=== PATIENT | male | born 1955 | race Hispanic/Latino ===

== ENCOUNTER 2018-12-12 14:33 | Inpatient (IN) | payer MEDICARE, OTHER ==
[~2018-12-12] VITALS: Ht 167.6 cm; Wt 71.9 kg
[2018-12-12] MEDS ORDERED: SODIUM CHLORIDE 0.9% 1000ML 1,000 ML IV ONE (15:08)
[2018-12-12 15:15] LABS: EOSINOPHILS % (AUTO) 2.2 % (0.0-8.0); HEMATOCRIT 40.1 % (42-54); LYMPHOCYTES % (AUTO) 21.7 % (21.0-51.0); MEAN CORPUSCULAR HEMOGLOBIN 27.4 pg (27.0-33.0); MEAN CORPUSCULAR HGB CONC 33.1 g/dL (32.0-36.0); MEAN CORPUSCULAR VOLUME 82.7 fL (79-99); MONOCYTES % (AUTO) 10.5 % (3.0-13.0); NEUTROPHILS % (AUTO) 64.6 % (40.0-77.0); PLATELET COUNT (AUTO) 537 K/uL (130-400); RED BLOOD CELL COUNT(AUTO) 4.84 MIL/uL (4.50-6.20); RED CELL DISTRIBUTION WIDTH 13.6 % (11.0-15.5); WHITE BLOOD COUNT (AUTO) 13.1 K/uL (4.8-10.8)
[2018-12-12 15:42] LABS: CREATININE 0.9 mg/dL (0.5-1.5); POTASSIUM 4.5 mmol/L (3.5-5.1)
[2018-12-12 15:50] LABS: ALBUMIN 3.3 g/dL (3.5-5.0); BILIRUBIN,TOTAL 0.4 mg/dL (0.2-1.0); TOTAL PROTEIN, SERUM 7.8 g/dL (6.0-8.3)
[2018-12-12] MEDS ORDERED: AZITHROMYCIN 500MG+NS 250ML 250 ML IV ONE (15:56)
[2018-12-12] MEDS ORDERED: CEFTRIAXONE SODIUM 1 GM ONE (15:56)
[2018-12-12] MEDS ORDERED: SODIUM CHLORIDE 0.9% 50 ML IV ONE (15:56)
[2018-12-12] MEDS ORDERED: GUAIFENESIN-DM 200/20 MG 10 ML PO PRN (22:30)
[2018-12-12] MEDS ORDERED: MORPHINE SULFATE 2 MG/ML 1ML SYG IV PRN (22:30)
[2018-12-12] MEDS ORDERED: HYDRALAZINE HCL 20 MG/ML VIAL IV PRN (22:30)
[2018-12-12] MEDS ORDERED: ACETAMINOPHEN 325 MG TAB PO PRN ×2 (22:30)
[2018-12-12] MEDS ORDERED: ONDANSETRON HCL 4 MG/2 ML VIAL IV PRN (22:30)
[2018-12-12 23:27] LABS: PHOSPHORUS 3.4 mg/dL (2.5-4.9)
[2018-12-12] MEDS ORDERED: SODIUM CHLORIDE 3% FOR INHALATION 4 ML/AMP VIAL.NEB IH ONE (23:53)
[2018-12-13] MEDS ORDERED: IPRATROPIUM/ALBUTEROL SULFATE 3 ML SOLUTION IH ONE ×3 (00:08→10:51)
[2018-12-13] MEDS: IPRATROPIUM/ALBUTEROL SULFATE 3 ML SOLUTION IH SCH ×5 (00:09→23:17)
[2018-12-13] MEDS ORDERED: SODIUM CHLORIDE 3% FOR INHALATION 4 ML/AMP VIAL.NEB IH ONE (05:19)
[2018-12-13 06:14] LABS: BASOPHILS % (AUTO) 0.9 % (0.0-5.0); EOSINOPHILS % (AUTO) 2.3 % (0.0-8.0); HEMATOCRIT 37.9 % (42-54); LYMPHOCYTES % (AUTO) 19.5 % (21.0-51.0); MEAN CORPUSCULAR HEMOGLOBIN 27.3 pg (27.0-33.0); MEAN CORPUSCULAR HGB CONC 33.1 g/dL (32.0-36.0); MEAN CORPUSCULAR VOLUME 82.4 fL (79-99); MONOCYTES % (AUTO) 10.9 % (3.0-13.0); NEUTROPHILS % (AUTO) 66.4 % (40.0-77.0); PLATELET COUNT (AUTO) 491 K/uL (130-400); RED BLOOD CELL COUNT(AUTO) 4.59 MIL/uL (4.50-6.20); RED CELL DISTRIBUTION WIDTH 13.4 % (11.0-15.5); WHITE BLOOD COUNT (AUTO) 10.7 K/uL (4.8-10.8)
[2018-12-13 06:24] LABS: CREATININE 0.8 mg/dL (0.5-1.5); POTASSIUM 4.2 mmol/L (3.5-5.1)
[2018-12-13 06:28] LABS: ALBUMIN 2.7 g/dL (3.5-5.0); BILIRUBIN,TOTAL 0.4 mg/dL (0.2-1.0); TOTAL PROTEIN, SERUM 7.5 g/dL (6.0-8.3)
[2018-12-13] MEDS: OSELTAMIVIR PHOSPHATE 75 MG CAP PO SCH ×2 (09:00→21:37)
[2018-12-13] MEDS: FUROSEMIDE 10 MG/ML 4ML VIAL IVP SCH ×2 (09:00→21:36)
[2018-12-13] MEDS: CEFTRIAXONE SODIUM 1 GM IV SCH ×2 (09:00→21:36)
[2018-12-13] MEDS: FAMOTIDINE/PF 20 MG/2 ML VIAL IV SCH ×2 (09:00→21:36)
[2018-12-13] MEDS ORDERED: IOHEXOL-350 50ML VIAL IV ONE (09:55)
--- NOTE | 2018-12-13 10:30 | NUR ---
U/S GD RT THORACENTESIS PROCEDURE PERFORMED BY DR Yo COTTRELL. PUNCTURE SITE RT POSTERIOR BACK AND PATIENT TOLERATED PROCEDURE WELL. TOTAL REMOVED 1.7 LITERS OF BLOOD TINGED FLUID. END OF PROCEDURE AT 1010. CATHETER REMOVED AND DRESSING APPLIED. NO BLEEDING NOTED. POST CHEST X-RAY TAKEN AND READ BY DR Yo COTTRELL. PENDING RESULTS OF CHEST X-RAY. REPORT GIVEN TO Vani MCKNIGHT RN AND PATIENT TRANSPORTED TO ED 9 VIA BED AT 1030. AAO X3 WITH NO C/O PAIN. SPECIMEN SENT TO LAB.
[2018-12-13] MEDS ORDERED: FAMOTIDINE/PF 20 MG/2 ML VIAL IV ONE (10:42)
[2018-12-13] MEDS ORDERED: OSELTAMIVIR PHOSPHATE 75 MG CAP ONE (10:42)
[2018-12-13 15:15] VITALS: BP 133/78
[2018-12-13] MEDS: AZITHROMYCIN 500MG+NS 250ML 250 ML IV SCH (16:54)
[2018-12-13 17:28] LABS: APPEARANCE BODY FLUID TURBID (CLEAR); SPECIMENTYPE,BODY FLUID PLEURAL
[2018-12-13 17:29] LABS: BODY FLUID WBC 2245 /cu. mm.; COLOR,BODY FLUID RED (LT YELLOW); TOTAL VOLUME,BODY FLUID 1700 mL
[2018-12-13 17:30] LABS: BODY FLUID RBC 6578 /cu. mm.
[2018-12-13 17:49] LABS: BF LYMPHOCYTE 92 %; BF MONOCYTE 5 %
[2018-12-13 19:05] VITALS: BP 147/83
[2018-12-13 23:05] VITALS: BP 118/75
[2018-12-14 03:05] VITALS: BP 117/78
[2018-12-14 04:59] LABS: HEMATOCRIT 37.6 % (42-54); MEAN CORPUSCULAR HEMOGLOBIN 27.3 pg (27.0-33.0); MEAN CORPUSCULAR HGB CONC 33.2 g/dL (32.0-36.0); MEAN CORPUSCULAR VOLUME 82.3 fL (79-99); PLATELET COUNT (AUTO) 480 K/uL (130-400); RED BLOOD CELL COUNT(AUTO) 4.57 MIL/uL (4.50-6.20); RED CELL DISTRIBUTION WIDTH 13.2 % (11.0-15.5); WHITE BLOOD COUNT (AUTO) 11.5 K/uL (4.8-10.8)
[2018-12-14 05:08] LABS: CARBON DIOXIDE 26 mmol/L (21-32); CHLORIDE 101 mmol/L (101-111); CREATININE 0.9 mg/dL (0.5-1.5); GLOMERULAR FILTR. RATE CALC 90 mL/min (>60); GLUCOSE,RANDOM 108 mg/dL (70-105); POTASSIUM 3.8 mmol/L (3.5-5.1); SODIUM SERUM 139 mmol/L (136-145); UREA NITROGEN, BLOOD 11 mg/dL (7-18)
[2018-12-14] MEDS: IPRATROPIUM/ALBUTEROL SULFATE 3 ML SOLUTION IH SCH ×4 (06:55→23:11)
[2018-12-14 07:45] VITALS: BP 120/81
[2018-12-14] MEDS: OSELTAMIVIR PHOSPHATE 75 MG CAP PO SCH ×2 (10:06→20:40)
[2018-12-14] MEDS: CEFTRIAXONE SODIUM 1 GM IV SCH ×2 (10:06→20:40)
[2018-12-14] MEDS: FAMOTIDINE/PF 20 MG/2 ML VIAL IV SCH ×2 (10:07→20:40)
[2018-12-14] MEDS: FUROSEMIDE 10 MG/ML 4ML VIAL IVP SCH ×2 (10:07→20:40)
[2018-12-14 12:00] VITALS: BP 123/79
--- NOTE | 2018-12-14 13:50 | NUR ---
DCP: CM met with pt discussed dc plans. Pt is independent prior to admission, lives at home alone, son lives close by. Pt has a cane, shower chair. Denies any other equipments/services. Feels safe to go back home, still drives, son able to assist with transportation and needs as necessary. DC plan to home once stable. CM to cont to follow up. Addendum: 12/14/18 at 1352 by HIPOLITO MCCAIN LVN CM Amended: Links added.
[2018-12-14] MEDS: AZITHROMYCIN 500MG+NS 250ML 250 ML IV SCH (15:41)
[2018-12-14 16:00] VITALS: BP 119/86
[2018-12-14 19:00] VITALS: BP 124/71
--- NOTE | 2018-12-14 20:40 | NUR ---
MEDS SHIFT ASSESSMENT DONE, PLEASE REFER TO CHART. DUE MEDS ADMINISTERED, TOLERATED WELL. KEPT RESTED AND COMFORTABLE. CALL LIGHT WITHIN REACH. WILL MONITOR PT. Addendum: 12/14/18 at 2249 by LEONEL NYE RN RN Amended: Links added.
[2018-12-15] VITALS: BP 100/52
--- NOTE | 2018-12-15 01:32 | NUR ---
ROUNDS PT RESTING WELL, FAIRLY ASLEEP WITH RESPIRATIONS EVEN AND UNLABORED. NO NOTED DISTRESS. KEPT UNDISTURBED FOR NOW WILL MONITOR PT. CALL LIGHT WITHIN REACH.
[2018-12-15 04:00] VITALS: BP 115/74
[2018-12-15 04:50] LABS: BASOPHILS % (AUTO) 1.1 % (0.0-5.0); EOSINOPHILS % (AUTO) 2.3 % (0.0-8.0); HEMATOCRIT 40.2 % (42-54); LYMPHOCYTES % (AUTO) 18.3 % (21.0-51.0); MEAN CORPUSCULAR HEMOGLOBIN 26.6 pg (27.0-33.0); MEAN CORPUSCULAR HGB CONC 32.1 g/dL (32.0-36.0); MEAN CORPUSCULAR VOLUME 82.8 fL (79-99); MONOCYTES % (AUTO) 11.6 % (3.0-13.0); NEUTROPHILS % (AUTO) 66.7 % (40.0-77.0); NUCLEATED RED BLOOD CELLS 0.1 % (0.0-0.19); PLATELET COUNT (AUTO) 522 K/uL (130-400); RED BLOOD CELL COUNT(AUTO) 4.85 MIL/uL (4.50-6.20); RED CELL DISTRIBUTION WIDTH 13.4 % (11.0-15.5); WHITE BLOOD COUNT (AUTO) 11.9 K/uL (4.8-10.8)
[2018-12-15 05:18] LABS: ALBUMIN 2.6 g/dL (3.5-5.0); BILIRUBIN,TOTAL 0.3 mg/dL (0.2-1.0); POTASSIUM 3.7 mmol/L (3.5-5.1); TOTAL PROTEIN, SERUM 7.8 g/dL (6.0-8.3)
--- NOTE | 2018-12-15 05:34 | NUR ---
ROUNDS PT RESTING WELL, STILL ASLEEP. KEPT COMFORTABLE. FOR MORE CARE.
[2018-12-15] MEDS: IPRATROPIUM/ALBUTEROL SULFATE 3 ML SOLUTION IH SCH ×4 (06:51→23:10)
[2018-12-15 08:00] VITALS: BP 109/89
[2018-12-15] MEDS: FUROSEMIDE 10 MG/ML 4ML VIAL IVP SCH ×2 (09:00→19:54)
[2018-12-15] MEDS: FAMOTIDINE/PF 20 MG/2 ML VIAL IV SCH ×2 (10:13→19:54)
[2018-12-15] MEDS: CEFTRIAXONE SODIUM 1 GM IV SCH ×2 (10:13→19:54)
[2018-12-15] MEDS: OSELTAMIVIR PHOSPHATE 75 MG CAP PO SCH ×2 (10:13→19:54)
[2018-12-15 11:50] VITALS: BP 140/95
--- NOTE | 2018-12-15 14:09 | NUR ---
THORACIC SURGERY CONSULT ATTEMPTED TO PAGE DR FRAIRE/AMBAR REGARDING CONSULT- NO ANSWER AND UNABLE TO LEAVE MESSAGE
--- NOTE | 2018-12-15 14:56 | NUR ---
DR BARON NURSE PAGED PAGED REGARDING CONSULT
--- NOTE | 2018-12-15 15:06 | NUR ---
Notified [facility], via telephone of consult with pt.
[2018-12-15] MEDS: AZITHROMYCIN 500MG+NS 250ML 250 ML IV SCH (15:21)
[2018-12-15 16:00] VITALS: BP 133/82
[2018-12-15 19:00] VITALS: BP 124/74
[2018-12-16] VITALS (7 sets, daily range): BP systolic 110–131; BP diastolic 71–89
[2018-12-16 05:12] LABS: BASOPHILS % (AUTO) 0.9 % (0.0-5.0); EOSINOPHILS % (AUTO) 2.8 % (0.0-8.0); HEMATOCRIT 37.2 % (42-54); LYMPHOCYTES % (AUTO) 15.1 % (21.0-51.0); MEAN CORPUSCULAR HGB CONC 33.2 g/dL (32.0-36.0); MEAN CORPUSCULAR VOLUME 81.3 fL (79-99); MONOCYTES % (AUTO) 13.1 % (3.0-13.0); NEUTROPHILS % (AUTO) 68.1 % (40.0-77.0); PLATELET COUNT (AUTO) 525 K/uL (130-400); RED BLOOD CELL COUNT(AUTO) 4.57 MIL/uL (4.50-6.20); RED CELL DISTRIBUTION WIDTH 13.2 % (11.0-15.5)
[2018-12-16 05:24] LABS: CREATININE 0.9 mg/dL (0.5-1.5); POTASSIUM 3.9 mmol/L (3.5-5.1)
[2018-12-16] MEDS: IPRATROPIUM/ALBUTEROL SULFATE 3 ML SOLUTION IH SCH ×4 (06:56→23:34)
--- NOTE | 2018-12-16 08:00 | NUR ---
NOTE AAOX3. DENIES PAIN OR DISCOMFORT. NO DISTRESS NOTED. DRY COUGH. STATES EVERY NOW AND THEN HE DOES BRING UP SOME PHLEGM. HE IS ANXIOUS AND SOMEWHAT NERVOUS ABOUT CONSULT WITH DR MORRELL. I WILL CALL HIS NURSE AND FIND OUT WHEN HE WILL BE ROUNDING AND INFORM PATIENT ABOUT IT. BBS DIMINISHED TO RIGHT LOWER AND UPPER WELL. HE HAD RIGHT THORACENTESIS 2 DAYS AGO. HE IS ON DROPLET PRECAUTIONS. HE REPORTS HAVING LOST 20 POUNDS OVER LAST MONTH AND NIGHT SWEATS. DENIES CHILLS OR FEVER AT HOME OR BLOODY SPUTUM.
--- NOTE | 2018-12-16 10:00 | NUR ---
NOTE INFORMED HIM ABOUT DR MORRELL COMING IN BETWEEN SURGERIES TODAY. HIS SON IS AWARE WELL.
[2018-12-16] MEDS: FAMOTIDINE/PF 20 MG/2 ML VIAL IV SCH (10:31)
[2018-12-16] MEDS: CEFTRIAXONE SODIUM 1 GM IV SCH ×2 (10:31→20:25)
[2018-12-16] MEDS: FUROSEMIDE 10 MG/ML 4ML VIAL IVP SCH ×2 (10:31→20:25)
[2018-12-16] MEDS: OSELTAMIVIR PHOSPHATE 75 MG CAP PO SCH ×2 (10:32→20:25)
[2018-12-16] MEDS ORDERED: ENOXAPARIN SODIUM 30 MG/0.3 ML SQ SCH (13:30)
[2018-12-16] MEDS: AZITHROMYCIN 500MG+NS 250ML 250 ML IV SCH (16:19)
[2018-12-16] MEDS ORDERED: AMOX-429 PO (16:56)
[2018-12-16] MEDS ORDERED: GUAI5SYR PO (16:56)
[2018-12-16] MEDS ORDERED: OSEL75 PO (16:56)
[2018-12-16] MEDS ORDERED: CEFAZOLIN SODIUM 1 GM VIAL IVP PRN (17:45)
[2018-12-16] MEDS: FAMOTIDINE 20MG TAB 20 MG TAB PO SCH (20:25)
[2018-12-17 03:30] VITALS: BP 119/77
[2018-12-17] MEDS: IPRATROPIUM/ALBUTEROL SULFATE 3 ML SOLUTION IH SCH ×2 (06:48→11:26)
[2018-12-17 08:03] VITALS: BP 114/78
[2018-12-17] MEDS ORDERED: ENOXAPARIN SODIUM 30 MG/0.3 ML SQ SCH (09:00)
[2018-12-17] MEDS: OSELTAMIVIR PHOSPHATE 75 MG CAP PO SCH (10:31)
[2018-12-17] MEDS: FAMOTIDINE 20MG TAB 20 MG TAB PO SCH (10:32)
[2018-12-17] MEDS: FUROSEMIDE 10 MG/ML 4ML VIAL IVP SCH (10:33)
[2018-12-17] MEDS: CEFTRIAXONE SODIUM 1 GM IV SCH (10:33)
--- NOTE | 2018-12-17 10:50 | NUR ---
Patient refused Lovenox.
[2018-12-17 11:07] VITALS: BP 133/90
--- NOTE | 2018-12-17 13:16 | NUR ---
Reviewed discharge information regarding pleural effusion, pneumonia and thoracentesis. Medications reviewed and prescription given. As per discharge instructions, patient is to call pulmonologists office and set up follow up appointment within 1-2 weeks and schedule appointment with primary care physician within 3-5 days. Patient declined wheelchair or contacting family to notify of discharge, stating he drove himself to the hospital when he came in and he'd like to surprise his family when he arrives home. Escorted patient and assisted by carrying bags to vehicle. Patient denied shortness of breath, dizziness or chest pain.
--- NOTE | 2018-12-17 13:30 | NUR ---
Patient's son called regarding discharge. 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 Son verbalized understanding and stated he would review discharge information to ensure follow ups were performed.
== END 2018-12-17 13:28 | disposition home or self-care (01) | DRG 194 ==
LOC: EDH 14:33 → EDHIP 22:22 → 4BH 12-13 14:37
PROVIDERS: ADMIT Internal Medicine; ATTEND Internal Medicine
PROC: 0W993ZZ Drainage of Right Pleural Cavity, Percutaneous Approach (ICD-10-PCS; principal; 2018-12-13)
DX: J18.9 Pneumonia, unspecified organism (principal); J90 Pleural effusion, not elsewhere classified; E87.1 Hypo-osmolality and hyponatremia; E87.2 Acidosis; J98.11 Atelectasis
CPT/HCPCS: 32555; 36415; 71045; 71046; 71270; 80048; 80053; 82945; 83605; 83615; 83735; 83986; 84100; 84145; 84157; 84484; 85025; 85027; 86140; 87040; 87071; 87116; 87205; 87206; 88108; 88305; 89051; 93005; 94640; 94664; G0378; J0456; J0696; J1650; J1940; J3490; J7030; Q9967

== ENCOUNTER 2020-03-26 09:00 | Observation (INO) | payer MEDICARE ==
[~2020-03-26] VITALS: Ht 177.8 cm; Wt 77.0 kg
[~2020-03-26 09:00] MED LIST: ASPI-556 PO; LEVO500T2 PO; OSEL75 PO
[2020-03-26 09:55] LABS: BASOPHILS % (AUTO) 0.5 % (0.0-5.0); EOSINOPHILS % (AUTO) 0.4 % (0.0-8.0); HEMATOCRIT 35.9 % (42-54); LYMPHOCYTES % (AUTO) 11.7 % (21.0-51.0); MEAN CORPUSCULAR HEMOGLOBIN 25.3 pg (27.0-33.0); MEAN CORPUSCULAR HGB CONC 32.6 g/dL (32.0-36.0); MEAN CORPUSCULAR VOLUME 77.5 fL (79-99); MONOCYTES % (AUTO) 5.9 % (3.0-13.0); NEUTROPHILS % (AUTO) 80.3 % (40.0-77.0); PLATELET COUNT (AUTO) 253 K/uL (130-400); RED BLOOD CELL COUNT(AUTO) 4.63 MIL/uL (4.50-6.20); RED CELL DISTRIBUTION WIDTH 17.2 % (11.0-15.5); WHITE BLOOD COUNT (AUTO) 8.2 K/uL (4.8-10.8)
[2020-03-26 10:12] LABS: CARBON DIOXIDE 27 mmol/L (21-32); CREATININE 0.8 mg/dL (0.5-1.5); GLOMERULAR FILTR. RATE CALC 103 mL/min (>60); GLUCOSE,RANDOM 89 mg/dL (70-105); INR 1.09 (0.85-1.15); POTASSIUM 3.7 mmol/L (3.5-5.1); PROTHROMBIN TIME 11.8 SEC (9.6-11.6); SODIUM SERUM 124 mmol/L (136-145); UREA NITROGEN, BLOOD 12 mg/dL (7-18)
[2020-03-26 10:22] LABS: ALANINE AMINOTRANSFERASE 21 U/L (12-78); ALBUMIN 2.5 g/dL (3.5-5.0); ASPARTATE AMINOTRANSFERASE 20 U/L (10-37); BILIRUBIN,TOTAL 0.5 mg/dL (0.2-1.0); CHLORIDE 90 mmol/L (101-111); CREATINE KINASE, TOTAL 34 U/L (21-232); MYOGLOBIN 27 ng/mL (10-92); TOTAL PROTEIN, SERUM 6.5 g/dL (6.0-8.3); TROPONIN I < 0.04 ng/mL (0.00-0.06)
[2020-03-26] MEDS ORDERED: MORPHINE 4 MG SYG ONE (11:25)
[2020-03-26] MEDS ORDERED: ONDANSETRON 4MG INJ ONE (11:25)
[2020-03-26] MEDS ORDERED: ACETAMINOPHEN 325 MG TAB PO PRN (12:00)
[2020-03-26] MEDS ORDERED: TRAMADOL HCL 50 MG TABLET PO PRN (12:00)
[2020-03-26] MEDS ORDERED: ONDANSETRON 4MG INJ IV PRN (12:00)
[2020-03-26] MEDS ORDERED: FAMOTIDINE 20MG TAB ONE ×2 (12:22→21:01)
[2020-03-26] MEDS ORDERED: ENOXAPARIN SODIUM 30 MG/0.3 ML SQ ONE (12:22)
[2020-03-26 17:32] LABS: APPEARANCE,URINE Clear (CLEAR); BILIRUBIN,URINE Negative (NEGATIVE); COLOR,URINE Dark Yellow (YELLOW); GLUCOSE, URINE (UA) Negative (NEGATIVE); KETONES,URINE Trace mg/dL (NEGATIVE); LEUKOCYTE ESTERASE ,URINE Negative (NEGATIVE); NITRATE,URINE Negative (NEGATIVE); OCCULT BLOOD,URINE Negative (NEGATIVE); PH,URINE 6.5 (5.0-8.0); PROTEIN,URINE Trace mg/dL (NEGATIVE)
[2020-03-26 17:49] LABS: BACTERIA,URINE Rare /HPF (None Seen); MUCUS,URINE Few LPF (None Seen); RBC,URINE 0-1 /HPF (0-1); SQUAMOUS EPITHELIAL CELL,UR Rare /HPF (0-2); WBC,URINE 0-1 /HPF (0-1)
[2020-03-26] MEDS: FAMOTIDINE 20MG TAB PO SCH (21:00)
[2020-03-26 22:45] VITALS: BP_SYST 142; BP_SYST 97; BP_DIAS 63; BP_DIAS 77
[2020-03-26] MEDS ORDERED: LEVO75 PO (23:08)
[2020-03-26] MEDS ORDERED: DEXT15LI4 PO (23:08)
[2020-03-26] MEDS ORDERED: DOCU-280 PO (23:08)
[2020-03-27 06:11] LABS: BASOPHILS % (AUTO) 0.6 % (0.0-5.0); EOSINOPHILS % (AUTO) 0.3 % (0.0-8.0); HEMATOCRIT 37.6 % (42-54); LYMPHOCYTES % (AUTO) 10.5 % (21.0-51.0); MEAN CORPUSCULAR HEMOGLOBIN 25.1 pg (27.0-33.0); MEAN CORPUSCULAR HGB CONC 32.2 g/dL (32.0-36.0); MONOCYTES % (AUTO) 5.6 % (3.0-13.0); NEUTROPHILS % (AUTO) 81.2 % (40.0-77.0); PLATELET COUNT (AUTO) 275 K/uL (130-400); RED BLOOD CELL COUNT(AUTO) 4.82 MIL/uL (4.50-6.20); RED CELL DISTRIBUTION WIDTH 17.4 % (11.0-15.5); WHITE BLOOD COUNT (AUTO) 9.3 K/uL (4.8-10.8)
[2020-03-27 06:41] LABS: ALBUMIN 2.5 g/dL (3.5-5.0); BILIRUBIN,TOTAL 0.5 mg/dL (0.2-1.0); CREATININE 0.7 mg/dL (0.5-1.5); POTASSIUM 3.9 mmol/L (3.5-5.1); TOTAL PROTEIN, SERUM 6.6 g/dL (6.0-8.3)
[2020-03-27 07:47] VITALS: BP 125/74
[2020-03-27] MEDS ORDERED: ENOXAPARIN SODIUM 30 MG/0.3 ML SQ SCH (09:00)
[2020-03-27] MEDS: FAMOTIDINE 20MG TAB PO SCH (09:01)
== END 2020-03-27 18:20 ==
LOC: EDH 09:00 → EDHIP 11:51 → 3AH 21:26
PROVIDERS: ADMIT Internal Medicine; ATTEND Internal Medicine
DX: C45.0 Mesothelioma of pleura (principal); Z20.822 Contact with and (suspected) exposure to COVID-19; E87.1 Hypo-osmolality and hyponatremia; E87.6 Hypokalemia; E87.8 Other disorders of electrolyte and fluid balance, not elsewhere classified; R06.03 Acute respiratory distress; I82.409 Acute embolism and thrombosis of unspecified deep veins of unspecified lower extremity; E22.2 Syndrome of inappropriate secretion of antidiuretic hormone; D64.9 Anemia, unspecified; I10 Essential (primary) hypertension; J90 Pleural effusion, not elsewhere classified; N19 Unspecified kidney failure; Z77.090 Contact with and (suspected) exposure to asbestos; Z92.3 Personal history of irradiation; Z66 Do not resuscitate; Z79.899 Other long term (current) drug therapy
CPT/HCPCS: 36415 ×2; 71045; 80053 ×2; 81001; 82533; 82550; 83605; 83874; 83935; 84484; 85025 ×2; 85610; 85730; 87040; 87088; 87426; 93005; 96372; 99285; G0378 ×30; J1650 ×2; J2405; U0003; J2270